=== PATIENT | female | born 1930 | race Caucasian/White ===

== ENCOUNTER 2018-09-09 11:05 | Inpatient (IN) ==
[2018-09-09 11:45] LABS: Basophils % 0.4 % (0.0-0.8); Eosinophils # 0.1 10*3/uL (0.0-0.87); Eosinophils % 1.5 % (0.00-10.9); Hematocrit 36.8 VOL% (35.7-47.0); Hemoglobin 12.3 GM/DL (12.0-16.0); Immature Granulocytes % 0.8 %; Immature Granulocytes Absolute 0.04 #; Lymphocytes # 1.1 10*3/uL (1.4-4.0); Lymphocytes % 23.6 % (21.3-54.2); Mean Corpuscular HGB Conc 33.4 GM/DL (32-36); Mean Corpuscular Hemoglobin 31 PG (27-34); Mean Corpuscular Volume 92.5 FL (87-102); Mean Platelet Volume 11.1 FL (9.6-12.0); Monocytes # 0.5 10*3/uL (0.11-0.8); Monocytes % 11.3 % (1.7-12.7); Neutrophils % 62.4 % (38.7-73.9); Platelet Count 162 T/CUMM (130-400); Red Blood Count 3.98 MC/CUMM (3.8-5.5); Red Cell Distribution Width 13.3 % (9.3-17.3); White Blood Count 4.8 T/CUMM (4-12)
[2018-09-09 11:55] LABS: PT Patient Result 10.6 SECS; Partial Thromboplastin Time 23.9 SECS (0-40)
[2018-09-09 11:59] LABS: Apearance,Urine CLEAR (Clear); Bilirubin,Urine Negative (Negative); Blood, Urine Small mg/dL (Negative); Glucose,Urine (UA) Negative (Negative); Ketones,Urine Negative (Negative); Nitrite,Urine Negative (Negative); Protein,Urine Negative; RBC,Urine 2 /HPF (0-4); Squamous Epithelial Cell,Urine Occasional /HPF (0-10); Urine Color Yellow (Yellow); Urine Specific Gravity 1.011 (1.001-1.035); Urine Urobilinogen < 2.0 EU/DL (0.2-1.0); WBC,Urine <1 /HPF (0-6)
[2018-09-09 12:01] LABS: Calcium 9.2 MG/DL (8.5-10.1); Osmolality,Calculated 267.4 MOS/KG (273-304); Potassium 3.1 MMOL/L (3.5-5.1)
[2018-09-09] MEDS ORDERED: GLUCAGON 1 MG VIAL IM PRN (13:04)
[2018-09-09] MEDS ORDERED: ONDANSETRON 4 MG/2 ML VIAL IV PRN (13:04)
[2018-09-09] MEDS ORDERED: DEXTROSE 50% 25 GM/50 ML VIAL IV PRN (13:04)
[2018-09-09] MEDS ORDERED: BISACODYL 5 MG TABLET PO PRN (13:04)
[2018-09-09] MEDS: SODIUM CHLORIDE 0.45% 1,000 ML IV SCH (13:47)
[2018-09-09] MEDS: INSULIN LISPRO 100 UNIT/ML SUBCUT SCH ×2 (17:57→21:00)
[2018-09-09] MEDS: ENOXAPARIN 30 MG/0.3 ML SYRINGE SUBCUT SCH (18:16)
[2018-09-10] MEDS: SODIUM CHLORIDE 0.45% 1,000 ML IV SCH ×2 (02:28→15:49)
[2018-09-10] MEDS: INSULIN LISPRO 100 UNIT/ML SUBCUT SCH ×4 (07:58→20:49)
[2018-09-10] MEDS: PANTOPRAZOLE 40 MG TABLET PO SCH (08:30)
[2018-09-10] MEDS ORDERED: POTASSIUM CHLORIDE 20 MEQ/15 ML UDCUP PER TUBE PRN (09:02)
[2018-09-10 09:26] LABS: Basophils % 0.5 % (0.0-0.8); Eosinophils # 0.2 10*3/uL (0.0-0.87); Eosinophils % 2.7 % (0.00-10.9); Hematocrit 39.7 VOL% (35.7-47.0); Hemoglobin 13.1 GM/DL (12.0-16.0); Immature Granulocytes % 0.5 %; Immature Granulocytes Absolute 0.03 #; Lymphocytes # 1.7 10*3/uL (1.4-4.0); Lymphocytes % 25.4 % (21.3-54.2); Mean Corpuscular Hemoglobin 31 PG (27-34); Mean Corpuscular Volume 93.6 FL (87-102); Mean Platelet Volume 10.9 FL (9.6-12.0); Monocytes # 0.7 10*3/uL (0.11-0.8); Neutrophils % 59.9 % (38.7-73.9); Platelet Count 189 T/CUMM (130-400); Red Blood Count 4.24 MC/CUMM (3.8-5.5); Red Cell Distribution Width 13.5 % (9.3-17.3); White Blood Count 6.7 T/CUMM (4-12)
[2018-09-10 09:49] LABS: Osmolality,Calculated 271.1 MOS/KG (273-304); Potassium 3.2 MMOL/L (3.5-5.1)
[2018-09-10 10:20] LABS: Albumin 3.6 G/DL (3.4-5.0); Bilirubin,Direct 0.16 MG/DL (0.0-0.20); Bilirubin,Indirect 0.3 MG/DL (0.0-1.0); Bilirubin,Total 0.5 MG/DL (0.2-1.0); Thyroid Stimulating Hormone 1.25 uIU/ml (0.358-3.74); Total Protein 7.2 G/DL (6.4-8.3)
[2018-09-10] MEDS: POTASSIUM CHLORIDE 20 MEQ TABLET PO PRN ×4 (10:34→18:07)
[2018-09-10] MEDS: ENOXAPARIN 30 MG/0.3 ML SYRINGE SUBCUT SCH (13:03)
[2018-09-11] MEDS: SODIUM CHLORIDE 0.45% 1,000 ML IV SCH ×2 (04:33→17:50)
[2018-09-11] MEDS: INSULIN LISPRO 100 UNIT/ML SUBCUT SCH ×4 (07:29→20:19)
[2018-09-11] MEDS: POTASSIUM CHLORIDE 20 MEQ TABLET PO PRN (07:54)
[2018-09-11] MEDS: ACETAMINOPHEN 325 MG TABLET PO PRN (07:55)
[2018-09-11] MEDS: PANTOPRAZOLE 40 MG TABLET PO SCH (07:59)
[2018-09-11] MEDS ORDERED: LORATADINE 10 MG TABLET PO PRN (08:16)
[2018-09-11] MEDS: PREGABALIN 75 MG CAPSULE PO SCH ×2 (09:15→20:19)
[2018-09-11] MEDS: buPROPion XL 150 MG TABLET PO SCH (09:15)
[2018-09-11] MEDS: POTASSIUM CHLORIDE 20 MEQ TABLET PO SCH (09:15)
[2018-09-11] MEDS: DONEPEZIL 10 MG TABLET PO SCH (09:15)
[2018-09-11] MEDS: AMPICILLIN 500 MG CAPSULE PO SCH ×4 (09:15→20:19)
[2018-09-11] MEDS: FAMOTIDINE 20 MG TABLET PO SCH (09:15)
[2018-09-11] MEDS: ASPIRIN CHEW 81 MG TABLET PO SCH (09:16)
[2018-09-11] MEDS: sitaGLIPtin 100 MG TABLET PO SCH (09:16)
[2018-09-11] MEDS: CHLORTHALIDONE 25 MG TABLET PO SCH (09:16)
[2018-09-11] MEDS: ATENOLOL 50 MG TABLET PO SCH (09:16)
[2018-09-11] MEDS: ENOXAPARIN 30 MG/0.3 ML SYRINGE SUBCUT SCH (13:04)
[2018-09-11 17:48] LABS: Apearance,Urine CLEAR (Clear); Bilirubin,Urine Negative (Negative); Blood, Urine Small mg/dL (Negative); Glucose,Urine (UA) Negative (Negative); Ketones,Urine Negative (Negative); Nitrite,Urine Negative (Negative); Protein,Urine Negative; RBC,Urine 2 /HPF (0-4); Squamous Epithelial Cell,Urine Occasional /HPF (0-10); Urine Color Yellow (Yellow); Urine Specific Gravity 1.008 (1.001-1.035); Urine Urobilinogen < 2.0 EU/DL (0.2-1.0); WBC,Urine <1 /HPF (0-6)
[2018-09-11] MEDS: ZALEPLON 5 MG CAPSULE PO SCH (20:19)
[2018-09-11] MEDS: SIMVASTATIN 40 MG TABLET PO SCH (20:19)
[2018-09-12] MEDS: INSULIN LISPRO 100 UNIT/ML SUBCUT SCH ×3 (07:35→16:24)
[2018-09-12] MEDS: DONEPEZIL 10 MG TABLET PO SCH (09:10)
[2018-09-12] MEDS: FAMOTIDINE 20 MG TABLET PO SCH (09:10)
[2018-09-12] MEDS: PREGABALIN 75 MG CAPSULE PO SCH ×2 (09:10→21:01)
[2018-09-12] MEDS: sitaGLIPtin 100 MG TABLET PO SCH (09:10)
[2018-09-12] MEDS: AMPICILLIN 500 MG CAPSULE PO SCH ×4 (09:10→21:20)
[2018-09-12] MEDS: PANTOPRAZOLE 40 MG TABLET PO SCH (09:10)
[2018-09-12] MEDS: POTASSIUM CHLORIDE 20 MEQ TABLET PO SCH (09:11)
[2018-09-12] MEDS: ATENOLOL 50 MG TABLET PO SCH (09:11)
[2018-09-12] MEDS: buPROPion XL 150 MG TABLET PO SCH (09:11)
[2018-09-12] MEDS: ASPIRIN CHEW 81 MG TABLET PO SCH (09:11)
[2018-09-12] MEDS: CHLORTHALIDONE 25 MG TABLET PO SCH (09:11)
[2018-09-12] MEDS: SODIUM CHLORIDE 0.45% 1,000 ML IV SCH ×2 (09:12→21:12)
[2018-09-12 13:46] LABS: Folate 21.2 NG/ML (5.4-24.0)
[2018-09-12] MEDS ORDERED: TUBERCULIN SKIN TEST 0.1 ML SYRINGE INTRADERM ONE (15:55)
[2018-09-12] MEDS: ENOXAPARIN 40 MG/0.4 ML SYRINGE SUBCUT SCH (21:01)
[2018-09-12] MEDS: ZALEPLON 5 MG CAPSULE PO SCH (21:01)
[2018-09-12] MEDS: ACETAMINOPHEN 325 MG TABLET PO PRN (21:19)
[2018-09-12] MEDS: SIMVASTATIN 40 MG TABLET PO SCH (21:20)
[2018-09-13] MEDS: INSULIN LISPRO 100 UNIT/ML SUBCUT SCH ×5 (00:59→21:40)
[2018-09-13] MEDS: SODIUM CHLORIDE 0.45% 1,000 ML IV SCH ×2 (06:59→18:30)
[2018-09-13] MEDS: DONEPEZIL 10 MG TABLET PO SCH (10:12)
[2018-09-13] MEDS: POTASSIUM CHLORIDE 20 MEQ TABLET PO SCH (10:12)
[2018-09-13] MEDS: FAMOTIDINE 20 MG TABLET PO SCH (10:12)
[2018-09-13] MEDS: PANTOPRAZOLE 40 MG TABLET PO SCH (10:12)
[2018-09-13] MEDS: PREGABALIN 75 MG CAPSULE PO SCH ×2 (10:12→21:39)
[2018-09-13] MEDS: sitaGLIPtin 100 MG TABLET PO SCH (10:12)
[2018-09-13] MEDS: buPROPion XL 150 MG TABLET PO SCH (10:12)
[2018-09-13] MEDS: AMPICILLIN 500 MG CAPSULE PO SCH ×4 (10:13→21:42)
[2018-09-13] MEDS: ATENOLOL 50 MG TABLET PO SCH (10:13)
[2018-09-13] MEDS: CHLORTHALIDONE 25 MG TABLET PO SCH (10:13)
[2018-09-13] MEDS: ASPIRIN CHEW 81 MG TABLET PO SCH (10:13)
[2018-09-13] MEDS: ZALEPLON 5 MG CAPSULE PO SCH (21:39)
[2018-09-13] MEDS: ENOXAPARIN 40 MG/0.4 ML SYRINGE SUBCUT SCH (21:39)
[2018-09-13] MEDS: SIMVASTATIN 40 MG TABLET PO SCH (21:40)
[2018-09-14] MEDS: INSULIN LISPRO 100 UNIT/ML SUBCUT SCH (07:22)
[2018-09-14 07:25] VITALS: BP 169/73
[2018-09-14] MEDS: DONEPEZIL 10 MG TABLET PO SCH (08:18)
[2018-09-14] MEDS: CHLORTHALIDONE 25 MG TABLET PO SCH (08:18)
[2018-09-14] MEDS: ASPIRIN CHEW 81 MG TABLET PO SCH (08:18)
[2018-09-14] MEDS: FAMOTIDINE 20 MG TABLET PO SCH (08:18)
[2018-09-14] MEDS: buPROPion XL 150 MG TABLET PO SCH (08:18)
[2018-09-14] MEDS: ATENOLOL 50 MG TABLET PO SCH (08:19)
[2018-09-14] MEDS: PANTOPRAZOLE 40 MG TABLET PO SCH (08:19)
[2018-09-14] MEDS: POTASSIUM CHLORIDE 20 MEQ TABLET PO SCH (08:19)
[2018-09-14] MEDS: sitaGLIPtin 100 MG TABLET PO SCH (08:19)
[2018-09-14] MEDS: PREGABALIN 75 MG CAPSULE PO SCH (08:19)
[2018-09-14] MEDS: AMPICILLIN 500 MG CAPSULE PO SCH (08:21)
== END 2018-09-14 11:09 | DRG 74 ==
LOC: EDUNIT# → EDBD → N.ED 11:05 → N.EDINP 11:05 → N.2E 14:01
PROVIDERS: ADMIT Family Medicine; ATTEND Family Medicine

== ENCOUNTER 2019-02-13 09:55 | Inpatient (IN) ==
[2019-02-13] MEDS ORDERED: DEXTROSE 50% 25 GM/50 ML VIAL IV PRN (10:23)
[2019-02-13] MEDS ORDERED: ONDANSETRON 4 MG/2 ML VIAL IV PRN (10:23)
[2019-02-13] MEDS ORDERED: GLUCAGON 1 MG VIAL IM PRN (10:23)
[2019-02-13 11:26] LABS: Basophils % 0.3 % (0.0-0.8); Eosinophils % 0.7 % (0.00-10.9); Hematocrit 37.9 VOL% (35.7-47.0); Hemoglobin 12.2 GM/DL (12.0-16.0); Immature Granulocytes % 0.3 %; Immature Granulocytes Absolute 0.02 #; Lymphocytes # 1.4 10*3/uL (1.4-4.0); Lymphocytes % 24.8 % (21.3-54.2); Mean Corpuscular HGB Conc 32.2 GM/DL (32-36); Mean Platelet Volume 10.8 FL (9.6-12.0); Monocytes % 10.1 % (1.7-12.7); Neutrophils % 63.8 % (38.7-73.9); Platelet Count 167 T/CUMM (130-400); Red Blood Count 4.03 MC/CUMM (3.8-5.5); Red Cell Distribution Width 13.7 % (9.3-17.3); White Blood Count 5.8 T/CUMM (4-12)
[2019-02-13 11:55] LABS: Albumin 3.5 G/DL (3.4-5.0); Bilirubin,Total 0.4 MG/DL (0.2-1.0); Calcium 9.3 MG/DL (8.5-10.1); Osmolality,Calculated 283.1 MOS/KG (273-304); Total Protein 7.4 G/DL (6.4-8.3)
[2019-02-13] MEDS: SODIUM CHLORIDE 0.45% 1,000 ML IV SCH (16:35)
[2019-02-13] MEDS: cefTRIAXone 1,000 MG in SYRINGE 1 EACH IV SCH (16:35)
[2019-02-13] MEDS: ENOXAPARIN 40 MG/0.4 ML SYRINGE SUBCUT SCH (16:45)
[2019-02-13 17:25] LABS: Apearance,Urine CLEAR (Clear); Bilirubin,Urine Negative (Negative); Blood, Urine Negative (Negative); Glucose,Urine (UA) Negative (Negative); Ketones,Urine Negative (Negative); Nitrite,Urine Negative (Negative); Protein,Urine Negative; RBC,Urine 2 /HPF (0-4); Squamous Epithelial Cell,Urine Occasional /HPF (0-10); Urine Color Straw (Yellow); Urine Specific Gravity 1.008 (1.001-1.035); Urine Urobilinogen < 2.0 EU/DL (0.2-1.0); WBC,Urine <1 /HPF (0-6)
[2019-02-13] MEDS: INSULIN LISPRO 100 UNIT/ML SUBCUT SCH ×2 (18:27→22:25)
[2019-02-13] MEDS: DOCUSATE SODIUM 100 MG CAPSULE PO SCH (21:09)
[2019-02-13] MEDS ORDERED: HALOPERIDOL 5 MG/ML AMP IM ONE (21:53)
[2019-02-14] MEDS: ACETAMINOPHEN 325 MG TABLET PO PRN ×2 (01:44→20:22)
[2019-02-14 05:38] LABS: Risk Ratio 4.52; VLDL CHOLESTEROL 21.6 MG/DL
[2019-02-14] MEDS: SODIUM CHLORIDE 0.45% 1,000 ML IV SCH ×3 (07:35→16:58)
[2019-02-14] MEDS: DOCUSATE SODIUM 100 MG CAPSULE PO SCH ×2 (10:11→20:17)
[2019-02-14] MEDS: PANTOPRAZOLE 40 MG TABLET PO SCH (10:11)
[2019-02-14] MEDS: cefTRIAXone 1,000 MG in SYRINGE 1 EACH IV SCH (10:12)
[2019-02-14] MEDS: INSULIN LISPRO 100 UNIT/ML SUBCUT SCH ×4 (10:15→21:49)
[2019-02-14] MEDS ORDERED: BISACODYL 5 MG TABLET PO PRN (10:35)
[2019-02-14] MEDS ORDERED: LORATADINE 10 MG TABLET PO PRN (10:35)
[2019-02-14] MEDS: sitaGLIPtin 100 MG TABLET PO SCH (11:07)
[2019-02-14] MEDS: DONEPEZIL 10 MG TABLET PO SCH (11:08)
[2019-02-14] MEDS: CHLORTHALIDONE 25 MG TABLET PO SCH (11:08)
[2019-02-14] MEDS: POTASSIUM CHLORIDE 20 MEQ TABLET PO SCH (11:09)
[2019-02-14] MEDS: ASPIRIN CHEW 81 MG TABLET PO SCH (11:09)
[2019-02-14] MEDS: ATENOLOL 50 MG TABLET PO SCH (11:09)
[2019-02-14] MEDS: PREGABALIN 75 MG CAPSULE PO SCH ×2 (11:18→20:17)
[2019-02-14] MEDS: ENOXAPARIN 40 MG/0.4 ML SYRINGE SUBCUT SCH (11:18)
[2019-02-14 17:26] LABS: Folate 15.8 NG/ML (5.4-24.0)
[2019-02-14] MEDS: QUEtiapine 25 MG TABLET PO SCH (18:11)
[2019-02-14] MEDS: SERTRALINE 50 MG TABLET PO SCH (20:21)
[2019-02-14] MEDS: SIMVASTATIN 40 MG TABLET PO SCH (20:22)
[2019-02-14] MEDS: ZALEPLON 5 MG CAPSULE PO SCH (20:22)
[2019-02-14] MEDS: MEMANTINE 5 MG TABLET PO SCH (20:22)
[2019-02-14] MEDS ORDERED: CIMETIDINE 200 MG PO SCH (21:00)
[2019-02-15] MEDS ORDERED: TUBERCULIN SKIN TEST 0.1 ML SYRINGE INTRADERM ONE (07:38)
[2019-02-15] MEDS: INSULIN LISPRO 100 UNIT/ML SUBCUT SCH ×4 (07:50→22:29)
[2019-02-15] MEDS: CHLORTHALIDONE 25 MG TABLET PO SCH (08:14)
[2019-02-15] MEDS: PREGABALIN 75 MG CAPSULE PO SCH ×2 (08:14→20:30)
[2019-02-15] MEDS: ASPIRIN CHEW 81 MG TABLET PO SCH (08:14)
[2019-02-15] MEDS: MEMANTINE 5 MG TABLET PO SCH ×2 (08:14→20:29)
[2019-02-15] MEDS: PANTOPRAZOLE 40 MG TABLET PO SCH (08:14)
[2019-02-15] MEDS: ATENOLOL 50 MG TABLET PO SCH (08:14)
[2019-02-15] MEDS: sitaGLIPtin 100 MG TABLET PO SCH (08:14)
[2019-02-15] MEDS: DONEPEZIL 10 MG TABLET PO SCH (08:14)
[2019-02-15] MEDS: POTASSIUM CHLORIDE 20 MEQ TABLET PO SCH (08:14)
[2019-02-15] MEDS: DOCUSATE SODIUM 100 MG CAPSULE PO SCH ×2 (08:14→20:30)
[2019-02-15] MEDS: SODIUM CHLORIDE 0.45% 1,000 ML IV SCH ×3 (08:22→22:35)
[2019-02-15] MEDS: ACETAMINOPHEN 325 MG TABLET PO PRN (08:30)
[2019-02-15] MEDS: cefTRIAXone 1,000 MG in SYRINGE 1 EACH IV SCH (10:24)
[2019-02-15] MEDS: ENOXAPARIN 40 MG/0.4 ML SYRINGE SUBCUT SCH (11:47)
[2019-02-15] MEDS: QUEtiapine 25 MG TABLET PO SCH (17:37)
[2019-02-15] MEDS: ZALEPLON 5 MG CAPSULE PO SCH (20:29)
[2019-02-15] MEDS: SERTRALINE 50 MG TABLET PO SCH (20:29)
[2019-02-15] MEDS: SIMVASTATIN 40 MG TABLET PO SCH (20:30)
[2019-02-16] MEDS: SODIUM CHLORIDE 0.45% 1,000 ML IV SCH (06:44)
[2019-02-16] MEDS: INSULIN LISPRO 100 UNIT/ML SUBCUT SCH (08:31)
[2019-02-16] MEDS: sitaGLIPtin 100 MG TABLET PO SCH (08:33)
[2019-02-16] MEDS: ASPIRIN CHEW 81 MG TABLET PO SCH (08:33)
[2019-02-16] MEDS: MEMANTINE 5 MG TABLET PO SCH (08:33)
[2019-02-16] MEDS: DOCUSATE SODIUM 100 MG CAPSULE PO SCH (08:33)
[2019-02-16] MEDS: POTASSIUM CHLORIDE 20 MEQ TABLET PO SCH (08:33)
[2019-02-16] MEDS: PREGABALIN 75 MG CAPSULE PO SCH (08:33)
[2019-02-16] MEDS: ATENOLOL 50 MG TABLET PO SCH (08:34)
[2019-02-16] MEDS: PANTOPRAZOLE 40 MG TABLET PO SCH (08:34)
[2019-02-16] MEDS: CHLORTHALIDONE 25 MG TABLET PO SCH (08:35)
[2019-02-16] MEDS: DONEPEZIL 10 MG TABLET PO SCH (08:35)
[2019-02-16] MEDS ORDERED: CYANOCOBALAMIN 500 MCG TABLET PO SCH (09:00)
[2019-02-16 09:45] VITALS: BP 176/80
[2019-02-16] MEDS: cefTRIAXone 1,000 MG in SYRINGE 1 EACH IV SCH (10:10)
== END 2019-02-16 11:06 | DRG 57 ==
LOC: N.4E → OBSVTOIN 10:36
PROVIDERS: ADMIT Family Medicine; ATTEND Family Medicine

== ENCOUNTER 2019-12-14 11:27 | Inpatient (IN) ==
[2019-12-14 12:28] LABS: Albumin 3.2 G/DL (3.4-5.0); Bilirubin,Total 0.4 MG/DL (0.2-1.0); Calcium 8.9 MG/DL (8.5-10.1); Osmolality,Calculated 283.3 MOS/KG (273-304); Total Protein 7.3 G/DL (6.4-8.3)
[2019-12-14 13:01] LABS: Apearance,Urine CLEAR (Clear); Bilirubin,Urine Negative (Negative); Blood, Urine Negative (Negative); Glucose,Urine (UA) Negative (Negative); Ketones,Urine Negative (Negative); Mucus,Urine Occasional /LPF (Occasional); Nitrite,Urine Negative (Negative); Protein,Urine Negative; RBC,Urine 1 /HPF (0-4); Squamous Epithelial Cell,Urine Occasional /HPF (0-10); Urine Color Yellow (Yellow); Urine Specific Gravity 1.009 (1.001-1.035); Urine Urobilinogen < 2.0 EU/DL (0.2-1.0); WBC,Urine <1 /HPF (0-6)
[2019-12-14 13:07] LABS: Basophils % 0.5 % (0.0-0.8); Eosinophils # 0.4 10*3/uL (0.0-0.87); Eosinophils % 6.2 % (0.00-10.9); Hematocrit 38.4 VOL% (35.7-47.0); Hemoglobin 11.7 GM/DL (12.0-16.0); Immature Granulocytes % 0.5 %; Immature Granulocytes Absolute 0.03 #; Lymphocytes # 1.6 10*3/uL (1.4-4.0); Lymphocytes % 25.3 % (21.3-54.2); Mean Corpuscular HGB Conc 30.5 GM/DL (32-36); Mean Corpuscular Volume 100.5 FL (87-102); Monocytes % 12.2 % (1.7-12.7); Neutrophils % 55.3 % (38.7-73.9); Platelet Count 160 T/CUMM (130-400); Red Blood Count 3.82 MC/CUMM (3.8-5.5); Red Cell Distribution Width 14.6 % (9.3-17.3); White Blood Count 6.3 T/CUMM (4-12)
[2019-12-14] MEDS ORDERED: ONDANSETRON 4 MG/2 ML VIAL IV PRN (13:56)
[2019-12-14] MEDS ORDERED: ACETAMINOPHEN 325 MG TABLET PO PRN (13:56)
[2019-12-14] MEDS: DOCUSATE SODIUM 100 MG CAPSULE PO SCH (20:32)
[2019-12-14] MEDS: PREGABALIN 75 MG CAPSULE PO SCH (20:33)
[2019-12-14] MEDS: DONEPEZIL 10 MG TABLET PO SCH (20:33)
[2019-12-14] MEDS: MEMANTINE 5 MG TABLET PO SCH (20:33)
[2019-12-14] MEDS: OLANZapine 5 MG TABLET PO SCH (20:33)
[2019-12-15] MEDS: OLANZapine 5 MG TABLET PO SCH ×2 (09:24→20:22)
[2019-12-15] MEDS: SERTRALINE 50 MG TABLET PO SCH (09:24)
[2019-12-15] MEDS: PREGABALIN 75 MG CAPSULE PO SCH ×2 (09:24→20:22)
[2019-12-15] MEDS: atenoloL 50 MG TABLET PO SCH (09:24)
[2019-12-15] MEDS: DOCUSATE SODIUM 100 MG CAPSULE PO SCH ×2 (09:24→20:22)
[2019-12-15] MEDS: sitaGLIPtin 100 MG TABLET PO SCH (09:24)
[2019-12-15] MEDS: POTASSIUM CHLORIDE 20 MEQ TABLET PO SCH (09:24)
[2019-12-15] MEDS: ASPIRIN CHEW 81 MG TABLET PO SCH (09:25)
[2019-12-15] MEDS: MEMANTINE 5 MG TABLET PO SCH ×2 (09:25→20:22)
[2019-12-15] MEDS: PANTOPRAZOLE 40 MG TABLET PO SCH (09:25)
[2019-12-15] MEDS: DIAZEPAM 5 MG TABLET PO SCH (20:21)
[2019-12-15] MEDS: SIMVASTATIN 40 MG TABLET PO SCH (20:22)
[2019-12-15] MEDS: DONEPEZIL 10 MG TABLET PO SCH (20:22)
[2019-12-16] MEDS ORDERED: LORazepam 2 MG/1 ML VIAL IV PRN (08:58)
[2019-12-16] MEDS ORDERED: LORazepam 2 MG/1 ML VIAL ONE (09:00)
[2019-12-16] MEDS: DOCUSATE SODIUM 100 MG CAPSULE PO SCH ×2 (14:00→20:30)
[2019-12-16] MEDS: sitaGLIPtin 100 MG TABLET PO SCH (14:00)
[2019-12-16] MEDS: ASPIRIN CHEW 81 MG TABLET PO SCH (14:00)
[2019-12-16] MEDS: POTASSIUM CHLORIDE 20 MEQ TABLET PO SCH (14:00)
[2019-12-16] MEDS: PREGABALIN 75 MG CAPSULE PO SCH ×2 (14:01→20:30)
[2019-12-16] MEDS: MEMANTINE 5 MG TABLET PO SCH ×2 (14:01→20:30)
[2019-12-16] MEDS: PANTOPRAZOLE 40 MG TABLET PO SCH (14:01)
[2019-12-16] MEDS: OLANZapine 5 MG TABLET PO SCH ×2 (14:01→20:30)
[2019-12-16] MEDS: SERTRALINE 50 MG TABLET PO SCH (14:01)
[2019-12-16] MEDS: atenoloL 50 MG TABLET PO SCH (14:01)
[2019-12-16] MEDS: DIAZEPAM 5 MG TABLET PO SCH (20:30)
[2019-12-16] MEDS: SIMVASTATIN 40 MG TABLET PO SCH (20:30)
[2019-12-16] MEDS: DONEPEZIL 10 MG TABLET PO SCH (20:30)
[2019-12-17] MEDS ORDERED: HALOPERIDOL 5 MG/ML AMP IM ONE (06:09)
[2019-12-17 06:53] LABS: Apearance,Urine CLEAR (Clear); Bacteria,Urine Occasional /HPF (Few); Bilirubin,Urine Negative (Negative); Blood, Urine Small mg/dL (Negative); Glucose,Urine (UA) Negative (Negative); Ketones,Urine Negative (Negative); Nitrite,Urine Negative (Negative); Protein,Urine Negative; RBC,Urine 3 /HPF (0-4); Renal Epithelial Cells,Urine Occasional /HPF (<1); Squamous Epithelial Cell,Urine Occasional /HPF (0-10); Urine Color Yellow (Yellow); Urine Specific Gravity 1.012 (1.001-1.035); Urine Urobilinogen < 2.0 EU/DL (0.2-1.0); WBC,Urine 12 /HPF (0-6)
[2019-12-17] MEDS ORDERED: LORazepam 2 MG/1 ML VIAL IV PRN (09:12)
[2019-12-17] MEDS: ASPIRIN CHEW 81 MG TABLET PO SCH (11:31)
[2019-12-17] MEDS: DOCUSATE SODIUM 100 MG CAPSULE PO SCH ×2 (11:31→20:13)
[2019-12-17] MEDS: PREGABALIN 75 MG CAPSULE PO SCH ×2 (11:31→20:13)
[2019-12-17] MEDS: atenoloL 50 MG TABLET PO SCH (11:32)
[2019-12-17] MEDS: SERTRALINE 50 MG TABLET PO SCH (11:32)
[2019-12-17] MEDS: POTASSIUM CHLORIDE 20 MEQ TABLET PO SCH (11:32)
[2019-12-17] MEDS: sitaGLIPtin 100 MG TABLET PO SCH (11:32)
[2019-12-17] MEDS: OLANZapine 5 MG TABLET PO SCH ×2 (11:32→20:13)
[2019-12-17] MEDS: MEMANTINE 5 MG TABLET PO SCH ×2 (11:32→20:13)
[2019-12-17] MEDS: PANTOPRAZOLE 40 MG TABLET PO SCH (11:32)
[2019-12-17] MEDS: SIMVASTATIN 40 MG TABLET PO SCH (20:13)
[2019-12-18] MEDS ORDERED: TUBERCULIN SKIN TEST 0.1 ML SYRINGE INTRADERM ONE (08:45)
[2019-12-18] MEDS: atenoloL 50 MG TABLET PO SCH (11:34)
[2019-12-18] MEDS: sitaGLIPtin 100 MG TABLET PO SCH (11:34)
[2019-12-18] MEDS: PANTOPRAZOLE 40 MG TABLET PO SCH (11:34)
[2019-12-18] MEDS: PREGABALIN 75 MG CAPSULE PO SCH ×2 (11:34→21:33)
[2019-12-18] MEDS: ASPIRIN CHEW 81 MG TABLET PO SCH (11:34)
[2019-12-18] MEDS: OLANZapine 5 MG TABLET PO SCH ×2 (11:34→21:33)
[2019-12-18] MEDS: SERTRALINE 50 MG TABLET PO SCH (11:34)
[2019-12-18] MEDS: DOCUSATE SODIUM 100 MG CAPSULE PO SCH ×2 (11:34→21:33)
[2019-12-18] MEDS: POTASSIUM CHLORIDE 20 MEQ TABLET PO SCH (11:34)
[2019-12-18] MEDS: MEMANTINE 5 MG TABLET PO SCH ×2 (11:50→21:33)
[2019-12-18] MEDS ORDERED: TAMSULOSIN 0.4 MG CAPSULE PO SCH (21:00)
[2019-12-18] MEDS: SIMVASTATIN 40 MG TABLET PO SCH (21:33)
[2019-12-19] MEDS: SERTRALINE 50 MG TABLET PO SCH (08:28)
[2019-12-19] MEDS: OLANZapine 5 MG TABLET PO SCH (08:28)
[2019-12-19] MEDS: DOCUSATE SODIUM 100 MG CAPSULE PO SCH (08:28)
[2019-12-19] MEDS: PREGABALIN 75 MG CAPSULE PO SCH (08:28)
[2019-12-19] MEDS: atenoloL 50 MG TABLET PO SCH (08:29)
[2019-12-19] MEDS: POTASSIUM CHLORIDE 20 MEQ TABLET PO SCH (08:29)
[2019-12-19] MEDS: sitaGLIPtin 100 MG TABLET PO SCH (08:29)
[2019-12-19] MEDS: ASPIRIN CHEW 81 MG TABLET PO SCH (08:29)
[2019-12-19] MEDS: PANTOPRAZOLE 40 MG TABLET PO SCH (08:29)
[2019-12-19] MEDS: MEMANTINE 5 MG TABLET PO SCH (08:34)
[2019-12-19 12:34] VITALS: BP 141/66
[2019-12-19] MEDS ORDERED: DOXYCYCLINE HYCLATE 100 MG CAPSULE PO SCH (21:00)
== END 2019-12-19 12:50 | DRG 884 ==
LOC: EDBD → EDUNIT# → N.EDINP 11:27 → N.ED 11:27 → N.EDINP 19:40 → N.4E 19:45
PROVIDERS: ADMIT Family Medicine; ATTEND Family Medicine